=== PATIENT | female | born 1995 | race Caucasian/White ===

== ENCOUNTER 2016-08-04 13:27 | Emergency (ER) | payer OTHER ==
--- NOTE | 2016-08-04 13:39 | PDOC ---
History of Present Illness - General Chief Complaint: Psychiatric Stated Complaint: HYPERVENTILLATING/PANIC ATTACK Time Seen by Provider: 08/04/16 13:33 History Source: Patient Exam Limitations: No Limitations - History of Present Illness Initial Comments: 08/04/16 13:39 This is a 21-year-old female with a reported history of asthma (no prior intubations) disease who presents emergency department due to hyperventilation. Patient states she was at work and noted a gradual onset of anxiety, and difficulty breathing. Subsequent to that she began to panic She can not describe a specific trigger but states she intermittently has these symptoms Typically they are not as severe as today and pass on their own Pt reports spasms of her upper extremities She is anxious and states that she is typically "independent" and does not like that there are so many people attending to her Pt denies recent use of any new medications Symptoms began while in her office, no exposure to carbon monoxide or other irritants Pt denies trauma to the chest wall Pt denies Illicit drug use Pt has not had prior testing for conditions causing hyperventilation 08/04/16 13:42 PMH: asthma PSH: denies Meds: denies ALL: NKDA Social: (+) tobacco use daily, denies drugs or alcohol GENERAL/CONSTITUTIONAL: No: fever, chills, weakness, loss of appetite. HEAD, EYES, EARS, NOSE AND THROAT: No: change in vision, ear pain, discharge, sore throat, throat swelling. CARDIOVASCULAR: Yes: right sided chest pain No: chest pain, lightheadedness, palpitations, syncope RESPIRATORY: Yes: hyperventilating No: cough, shortness of breath, wheezing, hemoptysis, stridor. GASTROINTESTINAL: No: nausea, vomiting, diarrhea, abdominal cramping, rectal bleeding, constipation. GENITOURINARY: No: dysuria, hematuria, frequency, urgency, flank pain. MUSCULOSKELETAL: No: back pain, neck pain, joint pain, muscle swelling or pain SKIN AND BREASTS: No: lesions, pallor, rash or easy bruising. NEUROLOGIC: No: headache, vertigo, paresthesias, weakness ENDOCRINE: No: unexplained weight gain or loss HEMATOLOGIC/LYMPHATIC: No: anemia, easy bleeding, swelling nodes. GENERAL: The patient is hyperventilating, has carpal spasms HEAD: Normal with no signs of trauma. EYES: PERRLA, EOMI, sclera anicteric, conjunctiva clear. ENT: Ears normal, nares patent, oropharynx clear without exudates. Moist mucous membranes. NECK: Normal range of motion, supple without lymphadenopathy, JVD, or masses. LUNGS: Breath sounds equal, clear to auscultation bilaterally. HEART: pt tachycardiac, no murmur appreciated ABDOMEN: Soft, nontender, normoactive bowel sounds. No guarding, no rebound. No masses palpable. EXTREMITIES: Normal range of motion, no edema. No clubbing or cyanosis. No erythema, or tenderness. NEUROLOGICAL: Cranial nerves II through XII grossly intact. Normal speech. No focal neurological deficits. MUSCULOSKELETAL: Back non-tender to palpation, no CVA tenderness SKIN: Warm, Dry, normal turgor, no rashes or lesions noted. Past History - Past Medical History Allergies/Adverse Reactions: Allergies Allergy/AdvReac Type Severity Reaction Status Date / Time No Known Allergies Allergy Verified 08/04/16 13:39 Home Medications: Ambulatory Orders Albuterol Sulfate Inhaler - [Ventolin Hfa Inhaler -] 2 inh PO Q4H PRN 05/26/15 Asthma: Yes - Immunization History Immunization Up to Date: Yes - Psycho/Social/Smoking Cessation Hx Anxiety: No Suicidal Ideation: No Smoking History: Current every day smoker Have you smoked in the past 12 months: No Number of Cigarettes Smoked Daily: 15 'Breaking Loose' booklet given: 05/26/15 Hx Alcohol Use: No Drug/Substance Use Hx: No Substance Use Type: None ED Treatment Course - LABORATORY CBC & Chemistry Diagram: 08/04/16 01:56 08/04/16 01:56 Medical Decision Making - Medical Decision Making 08/04/16 13:[address] IV Will draw basic labs Will give Ativan Will monitor on Tele Will re assess Will also do xray (r/o Pneumo) 08/04/16 15:36 Laboratory Tests 08/04/16 08/04/16 08/04/16 01:56 01:56 01:56 WBC 12.0 H Hgb 14.4 Hct 43.1 Plt Count 450 H D Neutrophils % 38.8 L D Lymphocytes % 48.7 H D Sodium 139 Potassium 3.8 Chloride 101 Carbon Dioxide 20 L Anion Gap 18 H BUN 11 D Creatinine 0.9 Serum , Qual Negative PT GREATLY improved no longer hyperventilating Pt will be discharged to home Follow up with PMD 08/04/16 15:37 CXR: nml *DC/Admit/Observation/Transfer Diagnosis at time of Disposition: Hyperventilating - Discharge Dispostion Disposition: HOME Condition at time of disposition: Stable Admit: No - Patient Instructions Printed Discharge Instructions: DI for Hyperventilation Additional Instructions: Susan Thank you for coming in to the ER today Please follow up with your PMD within 2 days Please review with your doctor what happened today You may benefit from medications for anxiety you MUST return to the ER for any other concerns or complaint - Post Discharge Activity Work/School Note: Back to Work
[2016-08-04 13:48] VITALS: TEMP 97.9; BMI 19.5
[2016-08-04] MEDS ORDERED: LORAZEPAM CARPU-JECT 2 MG/ML DISP.SYRIN ONE (13:49)
[2016-08-04] MEDS ORDERED: LORAZEPAM CARPU-JECT 2 MG/ML DISP.SYRIN IVPUSH ONE (13:52)
[2016-08-04 14:06] LABS: BASOPHIL 4.6 % (0-2.0); MCH 30.8 pg (25.7-33.7); MCHC 33.4 g/dl (32.0-36.0); MEAN PLT VOLUME 8.4 fl (7.5-11.1); NEUTROPHILS 38.8 % (42.8-82.8); PLATELET COUNT 450 K/MM3 (134-434); RDW 12.3 % (11.6-15.6)
[2016-08-04 14:22] LABS: ALBUMIN 5.1 g/dl (3.5-5.0); ALK PHOS 61 U/L (32-92); ANION GAP 18 (8-16); BILIRUBIN,TOTAL 0.5 mg/dl (0.2-1.0); CALCIUM 10.1 mg/dl (8.4-10.2); CO2 20 mmol/L (22-28); CREATININE 0.9 mg/dl (0.6-1.3); GLUCOSE,RANDOM 121 mg/dl (74-106); SGOT/AST 33 U/L (10-42); SGPT/ALT 16 U/L (10-40)
[2016-08-04 15:54] VITALS: BP 125/77; PULSE 82
== END 2016-08-04 16:12 | disposition home or self-care (01) ==
LOC: FER 13:27
PROC: 3E033NZ Introduction of Analgesics, Hypnotics, Sedatives into Peripheral Vein, Percutaneous Approach (ICD-10-PCS; principal; 2016-08-04)
DX: R06.4 Hyperventilation (principal); F17.210 Nicotine dependence, cigarettes, uncomplicated; J45.909 Unspecified asthma, uncomplicated
CPT/HCPCS: 36415; 71010-TC; 80053; 84703; 85025; 96374; 99283-25

== ENCOUNTER 2017-04-28 12:15 | Emergency (ER) | payer SELFPAY ==
--- NOTE | 2017-04-28 12:28 | PDOC ---
History of Present Illness - General History Source: Patient <Ivelisse Day - Last Filed: 04/28/17 16:11> - General History Source: Patient, Significant Other (boyfriend) Exam Limitations: No Limitations - History of Present Illness Initial Comments: 04/28/17 14:49 The patient is a 21 year old female, with significant past medical history of asthma, who presents to the emergency department with 4 days of cold symptoms. Patient states she has been experiencing nasal congestion, cough, and pressure in her ear for 4 days. Patient states that it hurts to cough. She also reports chills, diaphoresis, SOB, and subjective fever. She denies recent headache or dizziness. She denies recent nausea, vomit, diarrhea or constipation. She denies recent dysuria, frequency, urgency or hematuria. She denies recent chest pain. Allergies: NKA Past surgical history: None reported. Social history: Current every day smoker 10-15 cigarettes/day. Primary Care Physician: Cuca lassiter [place] Timing/Duration: unsure Severity: moderate Associated Symptoms: reports: cough, shortness of breath <Mis Sandoval - Last Filed: 04/28/17 16:15> - General Chief Complaint: Cold Symptoms Stated Complaint: cough Time Seen by Provider: 04/28/17 12:23 Past History - Past Medical History Asthma: Yes - Immunization History Immunization Up to Date: Yes - Suicide/Smoking/Psychosocial Hx Smoking History: Current every day smoker Have you smoked in the past 12 months: No Number of Cigarettes Smoked Daily: 15 'Breaking Loose' booklet given: 05/26/15 Hx Alcohol Use: No Drug/Substance Use Hx: No Substance Use Type: None <MplinhIvelisse wilson Aniya - Last Filed: 04/28/17 16:11> - Travel Traveled outside of the country in the last 30 days: No Close contact w/someone who was outside of country & ill: No <Mis Sandoval - Last Filed: 04/28/17 16:15> - Past Medical History Allergies/Adverse Reactions: Allergies Allergy/AdvReac Type Severity Reaction Status Date / Time No Known Allergies Allergy Verified 04/28/17 12:16 Home Medications: Ambulatory Orders Albuterol Sulfate Inhaler - [Ventolin Hfa Inhaler -] 2 inh PO Q4H PRN 05/26/15 Prednisone [Deltasone -] 10 mg PO ASDIR #14 tab 04/28/17 Review of Systems - Review of Systems Able to Perform ROS?: Yes Is the patient limited Albanian proficient: Yes Constitutional: Yes: Chills, Diaphoresis HEENTM: Yes: Ear Pain, Nose Congestion Respiratory: Yes: See HPI, Cough, Shortness of Breath <Mis Sandoval - Last Filed: 04/28/17 16:15> *Physical Exam - Vital Signs Last Vital Signs Temp Pulse Resp BP Pulse Ox 98.2 F 88 20 109/69 100 04/28/17 12:15 04/28/17 12:15 04/28/17 12:15 04/28/17 12:15 04/28/17 12:15 - Physical Exam General Appearance: Yes: Nourished, Mild Distress HEENT: positive: ZENA Neck: positive: Supple Respiratory/Chest: positive: Respiratory Distress, Labored Respiration, Wheezing Cardiovascular: positive: Regular Rhythm, Regular Rate, Tachycardia <Mis Sandoval - Last Filed: 04/28/17 16:15> ED Treatment Course - ADDITIONAL ORDERS Additional order review: Laboratory Results 04/28/17 12:27 Urine HCG, Qual Negative - RADIOLOGY Radiograph Interpretation: 04/28/17 15:36 Chest X-Ray Impression: normal chest Reported by: Rahul Stone MD - Medications Given in the ED: ED Medications Discontinued Medications Generic Name Dose Route Start Last Admin Trade Name Freq PRN Reason Stop Dose Admin Albuterol/Ipratropium 1 amp 04/28/17 13:15 04/28/17 13:49 Duoneb - NEB 04/28/17 14:01 1 amp Q15M DARELL Administration Prednisone 60 mg 04/28/17 13:06 04/28/17 14:14 Deltasone - PO 04/28/17 13:07 Not Given ONCE ONE <Mis Sandoval - Last Filed: 04/28/17 16:15> Medical Decision Making - Medical Decision Making 04/28/17 14:26 Patient seen immediately from arrival. Given inhalation treatment twice, with minimal relief. Given normal saline. Discuss about smoking cessation. Chest x- ray read by me, found to be within normal limits. <Mis Sandoval - Last Filed: 04/28/17 16:15> *DC/Admit/Observation/Transfer - Discharge Dispostion Admit: No <Ivelisse Day - Last Filed: 04/28/17 16:11> <Mis Sandoval - Last Filed: 04/28/17 16:15> Diagnosis at time of Disposition: Hyperventilating, Asthma attack - Discharge Dispostion Disposition: HOME Condition at time of disposition: Improved - Prescriptions Prescriptions: Prednisone [Deltasone -] 10 mg PO ASDIR #14 tab - Patient Instructions Printed Discharge Instructions: DI for Asthma -- Adult Additional Instructions: Quit smoking. - Post Discharge Activity Forms/Work/School Notes: Back to Work
[2017-04-28 12:44] VITALS: BP 109/69; PULSE 88; TEMP 98.2; BMI 20.1
[2017-04-28] MEDS ORDERED: ALBUTEROL SO4 2.5/IPRATROPIUM 0.5 INH SOL 3 ML VIAL.NEB. NEB ONE ×2 (12:57→13:29)
[2017-04-28] MEDS: ALBUTEROL SO4 2.5/IPRATROPIUM 0.5 INH SOL 3 ML VIAL.NEB. NEB SCH ×2 (13:11→13:49)
--- NOTE | 2017-04-28 13:13 | PDOC ---
History of Present Illness - General Chief Complaint: Cold Symptoms Stated Complaint: cough Time Seen by Provider: 04/28/17 12:23 - History of Present Illness Initial Comments: 04/28/17 13:08 21 yo F with h/o asthma who presents with SOB. Patient reports onset of cough and URI type symptoms beginning 4 days ago. Now endorses fevers/chills, SOB, [place] , and chest/pleuritic back pain beginning yesterday morning. Pain worse with deep inhalation and coughing. Denies N/V, weakness, abdominal, or urinary complaints. Symtposm have been refractory to albuterol medical management. States that she was advised to come to ED by her PCP. Past History - Past Medical History Allergies/Adverse Reactions: Allergies Allergy/AdvReac Type Severity Reaction Status Date / Time No Known Allergies Allergy Verified 04/28/17 12:16 Home Medications: Ambulatory Orders Albuterol Sulfate Inhaler - [Ventolin Hfa Inhaler -] 2 inh PO Q4H PRN 05/26/15 Asthma: Yes COPD: No - Immunization History Immunization Up to Date: Yes - Suicide/Smoking/Psychosocial Hx Smoking History: Current every day smoker Have you smoked in the past 12 months: No Number of Cigarettes Smoked Daily: 15 Information on smoking cessation initiated: Yes 'Breaking Loose' booklet given: 05/26/15 Hx Alcohol Use: No Drug/Substance Use Hx: No Substance Use Type: None Review of Systems - Review of Systems Comments:: 04/28/17 13:13 GENERAL/CONSTITUTIONAL: No fever or chills. No weakness. HEAD, EYES, EARS, NOSE AND THROAT: No change in vision. No ear pain or discharge. No sore throat.- CARDIOVASCULAR: No chest pain or shortness of breath RESPIRATORY: No cough, wheezing, or hemoptysis. GASTROINTESTINAL: No nausea, vomiting, diarrhea or constipation. GENITOURINARY: No dysuria, frequency, or change in urination. MUSCULOSKELETAL: No joint or muscle swelling or pain. No neck or back pain. SKIN: No rash NEUROLOGIC: No headache, vertigo, loss of consciousness, or change in strength/ sensation. ENDOCRINE: No increased thirst. No abnormal weight change HEMATOLOGIC/LYMPHATIC: No anemia, easy bleeding, or history of blood clots. ALLERGIC/IMMUNOLOGIC: No hives or skin allergy. *Physical Exam - Vital Signs Last Vital Signs Temp Pulse Resp BP Pulse Ox 98.2 F 88 20 109/69 100 04/28/17 12:15 04/28/17 12:15 04/28/17 12:15 04/28/17 12:15 04/28/17 12:15 - Physical Exam Comments: 04/28/17 13:13 GENERAL: Awake, alert, and fully oriented, in no acute distress HEAD: No signs of trauma, normocephalic, atraumatic EYES: PERRLA, EOMI, sclera anicteric, conjunctiva clear ENT: Auricles normal inspection, hearing grossly normal, nares patent, oropharynx clear without exudates. Moist mucosa NECK: Normal ROM, supple, no lymphadenopathy, JVD, or masses LUNGS: No distress, speaks full sentences, clear to auscultation bilaterally HEART: Regular rate and rhythm, normal S1 and S2, no murmurs, rubs or gallops, peripheral pulses normal and equal bilaterally. ABDOMEN: Soft, nontender, normoactive bowel sounds. No guarding, no rebound. No masses EXTREMITIES : Normal inspection, Normal range of motion, no edema. No clubbing or cyanosis. NEUROLOGICAL: Cranial nerves II through XII grossly intact. Normal speech, normal gait, no focal sensorimotor deficits SKIN: Warm, Dry, normal turgor, no rashes or lesions noted. ED Treatment Course - ADDITIONAL ORDERS Additional order review: Laboratory Results 04/28/17 12:27 Urine HCG, Qual Negative - RADIOLOGY Radiology Studies Ordered: Category Date Time Status CXRPORT [CHEST X-RAY PORTABLE*] [RAD] Stat Radiology 04/28/17 13:05 Ordered
[2017-04-28] MEDS: predniSONE 20 MG TABLET (UD) PO ONE ×2 (14:12→14:14)
[2017-04-28] MEDS ORDERED: predniSONE 20 MG TABLET (UD) ONE (14:12)
[2017-04-28] MEDS ORDERED: methylPREDNISolone NA SUCC 125 MG/2 ML VIAL IVPB ONE (14:14)
[2017-04-28] MEDS ORDERED: KETOROLAC TROMETHAMINE 30 MG/1 ML VIAL IVPUSH ONE (14:20)
[2017-04-28] MEDS ORDERED: SODIUM CHLORIDE 1,000 ML IV STA (14:24)
[2017-04-28] MEDS ORDERED: KETOROLAC TROMETHAMINE 30 MG/1 ML VIAL ONE (14:25)
[2017-04-28] MEDS ORDERED: methylPREDNISolone NA SUCC 125 MG/2 ML VIAL ONE (14:25)
[2017-04-28] MEDS ORDERED: ALBUTEROL SO4 18 GM HFA INHALER IH PRN (14:27)
== END 2017-04-28 16:30 | disposition home or self-care (01) ==
LOC: FER 12:15
PROC: 3E0333Z Introduction of Anti-inflammatory into Peripheral Vein, Percutaneous Approach (ICD-10-PCS; principal; 2017-04-28)
PROC: 3E033GC Introduction of Other Therapeutic Substance into Peripheral Vein, Percutaneous Approach (ICD-10-PCS; 2017-04-28)
PROC: 3E0337Z Introduction of Electrolytic and Water Balance Substance into Peripheral Vein, Percutaneous Approach (ICD-10-PCS; 2017-04-28)
PROC: 3E0F7GC Introduction of Other Therapeutic Substance into Respiratory Tract, Via Natural or Artificial Opening (ICD-10-PCS; 2017-04-28)
DX: J45.901 Unspecified asthma with (acute) exacerbation (principal); R06.4 Hyperventilation; F17.210 Nicotine dependence, cigarettes, uncomplicated
CPT/HCPCS: 71045-TC; 84703; 99282-25

== ENCOUNTER 2019-03-18 10:08 | Inpatient (IN) | payer OTHER ==
--- NOTE | 2019-03-18 10:46 | HP ---
Past Medical History - Admission History of Present Illness: 23 yo @ 38 2/7 wks by first trimester ultrasound, EDC 03/30/2019 complicated by: 1. Inconsistent care No visit between 13-20 wks No glucose test 2. Prior SAB x 2 Patient reports leakage of fluid at 0840, contractions began at 0900. She reports movement, denies vaginal bleeding. Limitations to Obtaining History: No Limitations - Past Medical History Cardiovascular: No: HTN Pulmonary: Yes: Asthma ...: 3 ...Spon : 1 ...Induced : 1 Heme/Onc: No: Anemia - Past Surgical History Hx Myomectomy: No Hx Transabdominal Cerclage: No Additional Surgical History: Left middle finger surgery - Smoking History Smoking history: Current every day smoker Have you smoked in the past 12 months: No Aproximately how many cigarettes per day: 15 - Alcohol/Substance Use Hx Alcohol Use: No - Social History History of Recent Travel: No Home Medications - Allergies Allergies/Adverse Reactions: Allergies Allergy/AdvReac Type Severity Reaction Status Date / Time No Known Allergies Allergy Verified 04/28/17 12:16 - Home Medications Home Medications: Ambulatory Orders Albuterol Sulfate Inhaler - [Ventolin Hfa Inhaler -] 2 inh PO Q4H PRN 05/26/15 predniSONE [Deltasone -] 10 mg PO ASDIR #14 tab 04/28/17 Family Medical History Family History: Denies Review of Systems - Review of Systems Constitutional: reports: No Symptoms Cardiovascular: reports: No Symptoms Respiratory: reports: No Symptoms Gastrointestinal: reports: No Symptoms Neurological: reports: No Symptoms Endocrine: reports: No Symptoms Physical Exam - Maternity Constitutional: Yes: Well Nourished, No Distress, Calm Lungs: Clear to auscultation - Abdominal Exam/OB Number of Fetuses: Single Presentation: Vertex Contractions: Yes Regularity: Regular Monitor Mode: External Heart Rate (range): 130 Category: I Accelerations: Non-Uniform Decelerations: None - Vaginal Exam/OB Dilatation (cm): 2 Effacement (%): 90 Amniotic Membrane Status: Ruptured Nitrazine Test: Positive Amniotic Fluid: Yes: Clear Station: -3 - Physical Exam Psychiatric: Yes: Alert, Oriented - Labs Lab Results: PNL; A positive, antibody negative, RPR NR; HIV neg; Hg Scarlet AA; HBs Ag neg; HCV neg; GBS neg; *GCT not done; Sequential 1&2 WNL Hemorrhage Risk Assessment - Risk Factors Medium Risk Factors: Yes: None High Risk Factors: Yes: None Risk Score: 1 Risk Level: Medium Risk Assessment/Plan 23 yo @ 38 2/7 wks SROM, active labor 1. Admit to L&D 2. Consents reviewed and signed 3. Routine labs collected and sent 4. GBS negative 5. Category I FHT 6. Will offer pain medication upon patient request 7. Will proceed with expectant management
[2019-03-18 11:38] VITALS: BMI 26.0
[2019-03-18 11:55] LABS: BASO % 0.9 % (0-2.0); EOS % 0.5 % (0-4.5); HEMATOCRIT 34.2 % (32.4-45.2); HEMOGLOBIN 11.7 GM/dL (10.7-15.3); LYMPH % 21.5 % (8-40); MCH 30.2 pg (25.7-33.7); MCHC 34.2 g/dl (32.0-36.0); MEAN CELL VOLUME 88.5 fl (80-96); MEAN PLT VOLUME 7.9 fl (7.5-11.1); MONO % 5.3 % (3.8-10.2); NEUT % 71.8 % (42.8-82.8); PLATELET COUNT 390 K/MM3 (134-434); RBC 3.86 M/mm3 (3.60-5.2); RDW 13.5 % (11.6-15.6); WHITE BLOOD COUNT 10.6 K/mm3 (4.0-10.0)
[2019-03-18 12:12] LABS: INR 0.86 (0.83-1.09); PROTHROMBIN TIME (PATIENT) 10.1 SEC (9.7-13.0)
[2019-03-18 12:14] LABS: ACTIVATED PTT 28.1 SECONDS (25.2-36.5)
[2019-03-18 12:23] LABS: BLOOD UREA NITROGEN 6.4 mg/dL (7-18); CALCIUM 9.2 mg/dL (8.5-10.1); CREATININE 0.8 mg/dL (0.55-1.3); POTASSIUM 3.5 mmol/L (3.5-5.1)
[2019-03-18] MEDS: ELECTROLYTE-148 SOLN 1,000 ML IV SCH ×3 (12:45→18:40)
[2019-03-18] MEDS ORDERED: FENTANYL/BUPIVACAINE/NS/PF - PCEA - 50 ML DISP.SYRIN EP ONE ×2 (13:11→18:56)
[2019-03-18] MEDS ORDERED: NALOXONE HCL 0.4 MG/ML VIAL IVPUSH PRN (13:14)
[2019-03-18] MEDS ORDERED: FENTANYL/BUPIVACAINE/NS/PF - PCEA - 50 ML DISP.SYRIN EP SCH (13:15)
[2019-03-18] MEDS ORDERED: LIDO 2%/EPI 1:200000 PRESRVFRE (20 ML SDVIAL) ONE (13:16)
[2019-03-18 14:25] LABS: COCAINE, UR NEGATIVE ng/ml (CUTOFF=300); METHADONE, UR NEGATIVE ng/ml (CUTOFF=300); OPIATES, URI NEGATIVE ng/ml (CUTOFF=300); PHENCYCLIDINE,URINE NEGATIVE ng/ml (CUTOFF=25); URINE AMPHETAMINES NEGATIVE ng/ml (CUTOFF=500); URINE BARBITURATES NEGATIVE ng/ml (CUTOFF=200); URINE BENZODIAZEPINES NEGATIVE ng/ml (CUTOFF=200)
--- NOTE | 2019-03-18 16:36 | PN ---
Progress Note (short form) - Note Progress Note: LATE ENTRY NOTE Called to patient bedside for deceleration at 14:47 for approximately 4 minutes to 60s/70s Loss of contact noted Exam revealed 3 cm dilated cervix, forebag noted, AROM performed FSE attempted, no contact noted, HR picked up by external monitor Patient repositioned, O2 via facemask given Resolution of FH to 140 with mod variability Will continue to monitor
--- NOTE | 2019-03-18 17:17 | PN ---
Ante-Partal Exam - Subjective Subjective: Patient reports minimial pain with contractions Vital Signs: Vital Signs Temperature 98.0 F 03/18/19 16:00 Pulse Rate 65 03/18/19 16:45 Respiratory Rate 18 03/18/19 16:45 Blood Pressure 112/75 03/18/19 16:45 O2 Sat by Pulse Oximetry (%) 100 03/18/19 16:45 Bleeding: No Headache: No Visual changes: No Right upper quadrant pain: No - Contractions Contractions: Yes Regularity: Regular - Exam during Labor Heart Rate: 130 Variability: Moderate Category: I Monitor Accelerations: Present Monitor Decelerations: None Exam: Vaginal Dilatation (cm): 3 Effacement (%): 80 Amniotic Membrane Status: Ruptured Station: -3 - Intrapartum Hemorrhage Risk Medium Risk Factors: None High Risk Factors: None Risk Score: 0 Risk Level: Low Risk - Assessment/Plan Assessment/Plan: 23 yo active labor 1. Inadequate cervical change, will start pitocin 2. GBS neg 3. Good pain control with epidural 4. Category I FHT 5. Will proceed with expectant management
[2019-03-18] MEDS ORDERED: OXYTOCIN 30 UNITS in 0.9% NS 30 UNIT/500 ML INFUS.BAG IVPB SCH (17:30)
[2019-03-18] MEDS ORDERED: OXYTOCIN 30 UNITS in 0.9% NS 30 UNIT/500 ML INFUS.BAG IVPB ONE (17:35)
--- NOTE | 2019-03-18 19:18 | PN ---
Ante-Partal Exam - Subjective Subjective: Patient reports increased pressure Vital Signs: Vital Signs Temperature 97.9 F 03/18/19 18:59 Pulse Rate 70 03/18/19 18:45 Respiratory Rate 18 03/18/19 18:45 Blood Pressure 110/56 L 03/18/19 18:45 O2 Sat by Pulse Oximetry (%) 100 03/18/19 18:45 Bleeding: No Headache: No Visual changes: No Right upper quadrant pain: No - Contractions Contractions: Yes Regularity: Regular Monitor Mode: External - Exam during Labor Heart Rate: 130 Variability: Moderate Category: I Monitor Decelerations: Variable Exam: Vaginal Dilatation (cm): 3 Effacement (%): 80 Station: -2 - Intrapartum Hemorrhage Risk Medium Risk Factors: None High Risk Factors: None Risk Score: 0 Risk Level: Low Risk - Assessment/Plan Assessment/Plan: 23 yo active labor 1. No cervical change, mild descent in head Will continue pitocin 2. GBS negative 3. Adequate pain control with epidural 4. Will continue expectant management
--- NOTE | 2019-03-18 20:04 | PN ---
Progress Note (short form) - Note Progress Note: Called to patient bedside for deceleration to 60s-70s for 4 minutes Patient placed in Knee-chest position, O2 via facemask SVE 6 cm / 100 /-1 Recovery of FH to baseline 140s mod chirag Patient placed in R lateral position Will continue to monitor
[2019-03-18] MEDS ORDERED: LIDOCAINE HCL 1% PRESERVATIVE FREE - 30ML VIAL ONE (21:04)
[2019-03-18] MEDS ORDERED: OXYTOCIN 20 UNITS in 0.9% NS 20 UNIT/1,000 ML INFUS.BAG IV ONE (21:05)
[2019-03-18] MEDS ORDERED: BENZOCAINE 20% 57 GM BOTTLE TP PRN (22:37)
[2019-03-18] MEDS ORDERED: BENZOCAINE 28 GM HEMORRHOIDAL OINTMENT TP PRN (22:37)
[2019-03-18] MEDS ORDERED: ACETAMINOPHEN 325 MG TABLET (FP) PO PRN (22:37)
[2019-03-18] MEDS ORDERED: IBUPROFEN 600 MG TABLET (FP) PO PRN (22:37)
[2019-03-18] MEDS ORDERED: METHYLERGONOVINE MALEATE 0.2 MG/1 ML AMP IM PRN (22:37)
[2019-03-18] MEDS ORDERED: BISACODYL 10 MG SUPP.RECT RC PRN (22:37)
[2019-03-18] MEDS ORDERED: WITCH HAZEL 50% (TUCKS) 40 PAD/JAR PAD TP PRN (22:37)
--- NOTE | 2019-03-18 22:39 | PN ---
Delivery - Delivery Vaginal Delivery: No Problems Type of Anesthesia: Epidural Episiotomy/Laceration: 1st degree (vaginal, left labial) EBL (cc): 300 Delivery, Single - Stages of Labor Date 1st Stage Initiatied: 03/18/19 Time 1st Stage Initiated: 09:00 Date 2nd Stage Initiated: 03/18/19 Time 2nd Stage Initiated: 21:45 Date of Delivery: 03/18/19 Time of Delivery: 22:17 Date Placenta Delivered: 03/18/19 Time Placenta Delivered: 22:27 Placenta: Yes: Spontaneous - Condition of Infant Infant Gender: Male Position: Left, OA Total Hours ROM (Hrs/Mins): 13 hours 47 minutes - 1 Minute Total Score: 9 5 Minutes Total Score: 9 - [place] Feeding Plan Initial Plan: Exclusive throughout hospitalization Remarks - Remarks Remarks: Patient progressed to fully dilated and at 2217 via delivered a viable male in BRITANY position, APGARs 9,9. Weight and length unknown at this time. Head delivered spontaneously followed by shoulders and body without difficulty. Infant with spontaneous cry. Nose and mouth was bulb suctioned. Cord was clamped and cut. Baby handed to waiting nursery staff Perineum and vagina examined, a first degree laceration was noted and repaired in the usual fashion. Placenta was delivered spontaneously and intact. 20 units of pitocin in 1 L IVF was given. All counts correct x 2. Mother and stable in LDR. EBL 300cc.
[2019-03-18] MEDS ORDERED: OXYTOCIN 20 UNITS in 0.9% NS 20 UNIT/1,000 ML INFUS.BAG IV SCH (22:45)
[2019-03-19] MEDS ORDERED: ACETAMINOPHEN 325 MG TABLET (FP) ONE (00:32)
[2019-03-19] MEDS ORDERED: IBUPROFEN 600 MG TABLET (FP) PO ONE (00:32)
[2019-03-19 06:45] LABS: BASO % 0.3 % (0-2.0); EOS % 0.9 % (0-4.5); HEMATOCRIT 28.9 % (32.4-45.2); HEMOGLOBIN 9.9 GM/dL (10.7-15.3); LYMPH % 19.2 % (8-40); MCH 30.6 pg (25.7-33.7); MCHC 34.4 g/dl (32.0-36.0); MEAN CELL VOLUME 89.1 fl (80-96); MEAN PLT VOLUME 7.9 fl (7.5-11.1); MONO % 6.7 % (3.8-10.2); NEUT % 72.9 % (42.8-82.8); PLATELET COUNT 294 K/MM3 (134-434); RBC 3.25 M/mm3 (3.60-5.2); RDW 13.8 % (11.6-15.6); WHITE BLOOD COUNT 13.6 K/mm3 (4.0-10.0)
[2019-03-19] MEDS: PRENATAL VITAMINS W/ FOLIC ACID TABLET (FP) PO SCH (10:56)
--- NOTE | 2019-03-19 12:18 | PN ---
Post Progress Note - Subjective Subjective: Patient without acute complaints. Reports tolerating oral intake without nausea or vomiting. Ambulating without dizziness. Denies fevers or chills. Pain well controlled with oral pain medication. without difficulty. Passing flatus. Post Day: 1 Type of Delivery: Vital Signs: Vital Signs Temperature 98.2 F 03/19/19 06:00 Pulse Rate 63 03/19/19 06:00 Respiratory Rate 18 03/19/19 06:00 Blood Pressure 102/48 L 03/19/19 06:00 O2 Sat by Pulse Oximetry (%) 100 03/18/19 23:30 Breast Exam: Yes: Soft Uterus: Yes: Fundus Firm, Fundus below umbilicus Abdomen/GI: Yes: Abdomen soft, Passing flatus, Tolerating PO. No: Abdominal Distention, Tender Lochia: Yes: Rubra Lochia, amount: Small Extremities: Yes: Calves non-tender. No: Edema Perineum: Yes: Laceration Activity: Ambulating - Labs Labs: CBC WBC 13.6 K/mm3 (4.0-10.0) H 03/19/19 05:40 RBC 3.25 M/mm3 (3.60-5.2) L 03/19/19 05:40 Hgb 9.9 GM/dL (10.7-15.3) L 03/19/19 05:40 Hct 28.9 % (32.4-45.2) L D 03/19/19 05:40 MCV 89.1 fl (80-96) 03/19/19 05:40 MCH 30.6 pg (25.7-33.7) 03/19/19 05:40 MCHC 34.4 g/dl (32.0-36.0) 03/19/19 05:40 RDW 13.8 % (11.6-15.6) 03/19/19 05:40 Plt Count 294 K/MM3 (134-434) D 03/19/19 05:40 MPV 7.9 fl (7.5-11.1) 03/19/19 05:40 Absolute Neuts (auto) 9.9 K/mm3 (1.5-8.0) H 03/19/19 05:40 Neutrophils % 72.9 % (42.8-82.8) 03/19/19 05:40 Lymphocytes % 19.2 % (8-40) 03/19/19 05:40 Monocytes % 6.7 % (3.8-10.2) 03/19/19 05:40 Eosinophils % 0.9 % (0-4.5) 03/19/19 05:40 Basophils % 0.3 % (0-2.0) 03/19/19 05:40 Nucleated RBC % 0 % (0-0) 03/19/19 05:40 Assessment/Plan 23 yo PPD # 1 s/p , afebrile, vital signs stable, doing well 1. Continue routine care. 2. AM CBC with mild anemia, will start iron 3. Rh positive status, no rhogam indicated. 4. Encourage ambulation 5. Continue oral pain medication 6. Anticipate discharge home day #2
[2019-03-19] MEDS ORDERED: SENNOSIDES/DOCUSATE COMBO (SENNA PLUS) TABLET (UD) PO PRN (22:00)
[2019-03-19] MEDS: FERROUS SO4 325 MG TABLET (FP) PO SCH (23:00)
--- NOTE | 2019-03-20 08:23 | DS ---
Physical Exam-CULINARY CHEF Vital Signs: Vital Signs Temperature 98.5 F 03/19/19 22:00 Pulse Rate 70 03/19/19 22:00 Respiratory Rate 20 03/19/19 22:00 Blood Pressure 118/69 03/19/19 22:00 O2 Sat by Pulse Oximetry (%) 100 03/18/19 23:30 Constitutional: Yes: Well Nourished, No Distress, Calm Eyes: Yes: WNL, Conjunctiva Clear, EOM Intact HENT: Yes: WNL, Atraumatic, Normocephalic Neck: Yes: WNL, Supple, Trachea Midline Cardiovascular: Yes: WNL, Regular Rate and Rhythm Respiratory: Yes: WNL, Regular, CTA Bilaterally Gastrointestinal: Yes: WNL, Normal Bowel Sounds, Soft Pelvis: Yes: WNL External Genitalia: Yes: Normal Internal Exam Deferred: Yes ....Post : Yes: Uterus firm, Uterus non-tender Breast(s): Yes: WNL Musculoskeletal: Yes: WNL Extremities: Yes: WNL Edema: No Integumentary: Yes: WNL Wound/Incision: Yes: Clean/Dry, Well Approximated Neurological: Yes: WNL, Alert, Oriented ...Motor Strength: WNL Psychiatric: Yes: WNL, Alert, Oriented Labs: CBC, BMP 03/19/19 05:40 03/18/19 11:41 Delivery - Delivery Vaginal Delivery: No Problems Type of Anesthesia: Epidural Episiotomy/Laceration: 1st degree (vaginal, left labial) EBL (cc): 300 Delivery, Single - Stages of Labor Date 1st Stage Initiatied: 03/18/19 Time 1st Stage Initiated: 09:00 Date 2nd Stage Initiated: 03/18/19 Time 2nd Stage Initiated: 21:45 Date of Delivery: 03/18/19 Time of Delivery: 22:17 Time Placenta Delivered: 22:27 Placenta: Yes: Spontaneous - Condition of Infant Gender: Male Weight: 5 lb 1 oz Position: Left, OA Total Hours ROM (Hrs/Mins): 13 hours 47 minutes - 1 Minute Total Score: 9 5 Minutes Total Score: 9 - Feeding Plan Initial Plan: Exclusive throughout hospitalization Discharge Summary Problems reviewed: Yes Reason For Visit: LABOR Procedures: Principal: Normal vaginal delivery Other Procedures: Penile circumcision of Condition: Good - Instructions Diet, Activity, Other Instructions: Physical activity Resume your normal everyday activity as tolerated no heavy lifting or exercise until seen by your surgeon. You may walk unlimited radha of and climb stairs. You may resume driving the car when you feel safe and comfortable behind the wheel. No sexual activity as instructed. Wound care If you have a bandage, leave it on, and keep dry for 48-72 hours. After that time discard the outer bandage. If they are tapes on the skin under the out of bandage leave them in place. They will peel off in the next 7 to 10 days. Do Not Peel them off. You may shower the day after surgery. If there are tapes present on the skin, you may shower over them. Diet There are no dietary restrictions. Eat healthy, high-fiber foods. Drink 6 to 8 glasses of liquid each day. This will assist in keeping your bowels are regular. Pain management You may take Tylenol or acetaminophen or Ibuprofen (for example, Motrin, Advil etc.) from my pain prescription medication is ordered should be taken as prescribed for moderate to severe pain. Call MD for any of the following: Severe pain not relieved by medication Fever of 101 or higher Excessive bleeding or drainage on dressing Inability to urinate Disposition: HOME - Home Medications Comprehensive Discharge Medication List: Ambulatory Orders Albuterol Sulfate Inhaler - [Ventolin Hfa Inhaler -] 2 inh PO Q4H PRN 05/26/15 Folic Acid - 1 mg PO DAILY 03/18/19 Iron/Calcium/E/Folic Acid/Mvit [Vitafol Caplet] 1 each PO DAILY 03/18/19 Vits96/Iron Fum/Folic [ Tablet] 1 each PO DAILY 03/18/19
[2019-03-20] MEDS: FERROUS SO4 325 MG TABLET (FP) PO SCH (09:36)
[2019-03-20] MEDS: PRENATAL VITAMINS W/ FOLIC ACID TABLET (FP) PO SCH (09:37)
[2019-03-20 11:39] LABS: POC NITRAZINE POS
[2019-03-20 15:55] VITALS: BP 115/72; PULSE 63; TEMP 98.4
== END 2019-03-20 13:50 | disposition home or self-care (01) | DRG 807 ==
LOC: JDEL 10:08 → JLDR 10:15 → J3W 03-19 01:30
PROVIDERS: ADMIT Obstetrics & Gynecology; ATTEND Obstetrics & Gynecology
PROC: 0HQ9XZZ Repair Perineum Skin, External Approach (ICD-10-PCS; principal; 2019-03-18)
PROC: 10E0XZZ Delivery of Products of Conception, External Approach (ICD-10-PCS; 2019-03-18)
DX: O70.0 First degree perineal laceration during delivery (principal); Z37.0 Single live birth; Z3A.38 38 weeks gestation of pregnancy
CPT/HCPCS: 36415; 36600; 59409; 80048; 80307; 82803; 83986-QW; 85025; 85610; 85730; 86593; 86850; 86900; 86901

== ENCOUNTER 2021-11-23 22:42 | Emergency (ER) | payer OTHER ==
[2021-11-23 22:51] VITALS: BP 135/87; PULSE 88; RESP 18; TEMP 98.4; BMI 24.1
[2021-11-23 23:28] LABS: HEMATOCRIT 39.3 % (32.4-45.2); HEMOGLOBIN 13.8 G/dL (10.7-15.3); MCH 31.5 pg (25.7-33.7); MCHC 35.2 g/dl (32.0-36.0); MEAN CELL VOLUME 89.4 fl (80-96); MEAN PLT VOLUME 6.8 fl (7.5-11.1); PLATELET COUNT 374.3 10^3/uL (134-434); RDW 14.1 % (11.6-15.6); WHITE BLOOD COUNT 9.9 10^3/uL (4.0-10.8)
[2021-11-23 23:34] LABS: HCG,QUALITATIVE URINE Negative
[2021-11-23 23:35] LABS: PLATELET ESTIMATE ADEQUATE
[2021-11-23 23:50] LABS: ALBUMIN 4.5 g/dl (3.4-5.0); BILIRUBIN,TOTAL 0.5 mg/dl (0.2-1); CREATININE 0.8 mg/dl (0.55-1.3); TOT PROT 7.3 g/dl (6.4-8.2)
[2021-11-24] MEDS ORDERED: PANTOPRAZOLE 40 MG TABLET PO ONE ×2 (00:18→00:26)
== END 2021-11-24 00:41 | disposition home or self-care (01) ==
LOC: FER 22:42
DX: R20.2 Paresthesia of skin (principal); K21.00 Gastro-esophageal reflux disease with esophagitis, without bleeding
CPT/HCPCS: 36415; 80053; 81003; 84443; 84703; 85027; 99283-25

== ENCOUNTER 2022-08-01 19:00 | Inpatient (IN) | payer OTHER ==
[2022-08-01] MEDS ORDERED: DINOPROSTONE 10 MG VAGINAL SUPPOSITORY VG ONE (19:45)
[2022-08-01] MEDS: ELECTROLYTE-148 SOLN 1,000 ML IV SCH (20:00)
[2022-08-01 20:08] VITALS: BMI 27.8
[2022-08-01 20:12] LABS: BASO % 0.7 % (0-2.0); EOS % 1.3 % (0-4.5); HEMATOCRIT 34.4 % (32.4-45.2); HEMOGLOBIN 11.8 GM/dL (10.7-15.3); LYMPH % 33.1 % (8-40); MCH 29.3 pg (25.7-33.7); MCHC 34.2 g/dl (32.0-36.0); MEAN CELL VOLUME 85.6 fl (80-96); MEAN PLT VOLUME 7.7 fl (7.5-11.1); NEUT % 58.9 % (42.8-82.8); PLATELET COUNT 341 10^3/uL (134-434); RBC 4.02 M/mm3 (3.60-5.2); RDW 13.4 % (11.6-15.6); WHITE BLOOD COUNT 9.1 K/mm3 (4.0-10.0)
[2022-08-01 20:19] LABS: INR 0.9 (0.83-1.09); PROTHROMBIN TIME (PATIENT) 10.5 SEC (9.7-13.0)
[2022-08-01 20:22] LABS: ACTIVATED PTT 25.4 SECONDS (25.2-36.5)
[2022-08-01 20:46] LABS: CALCIUM 9.8 mg/dL (8.5-10.1)
[2022-08-01 20:47] LABS: BLOOD UREA NITROGEN 13.4 mg/dL (7-18)
[2022-08-01 20:50] LABS: CREATININE 0.7 mg/dL (0.55-1.3)
[2022-08-02] MEDS ORDERED: FENTANYL/BUPIVACAINE/NS/PF - PCEA - 50 ML DISP.SYRIN EP ONE ×3 (10:04→19:31)
[2022-08-02] MEDS ORDERED: NALOXONE HCL 0.4 MG/ML VIAL IVPUSH PRN (10:10)
[2022-08-02] MEDS ORDERED: FENTANYL CITRATE/PF 50 MCG/ML VIAL ONE ×2 (10:11→19:42)
[2022-08-02] MEDS ORDERED: BUPIVACAINE HCL/PF 0.25% (2.5MG/ML) 10 ML VIAL ONE (10:11)
[2022-08-02] MEDS: ELECTROLYTE-148 SOLN 1,000 ML IV SCH ×2 (10:15→14:30)
[2022-08-02] MEDS ORDERED: OXYTOCIN 30 UNITS in 0.9% NS 30 UNIT/500 ML INFUS.BAG IVPB SCH (10:30)
[2022-08-02] MEDS: FENTANYL/BUPIVACAINE/NS/PF - PCEA - 50 ML DISP.SYRIN EP SCH ×2 (10:30→15:15)
[2022-08-02] MEDS ORDERED: OXYTOCIN 30 UNITS in 0.9% NS 30 UNIT/500 ML INFUS.BAG IVPB ONE (11:18)
[2022-08-02] MEDS ORDERED: AMPICILLIN SODIUM 2 GM VIAL ONE (19:35)
[2022-08-02] MEDS ORDERED: AMPICILLIN - 2 GM in SODIUM CHLORIDE 100 ML IVPB ONE (19:40)
[2022-08-02] MEDS ORDERED: LIDOCAINE HCL 1% PRESERVATIVE FREE - 30ML VIAL ONE (19:42)
[2022-08-02] MEDS ORDERED: OXYTOCIN 20 UNITS in 0.9% NS 20 UNIT/1,000 ML INFUS.BAG IV ONE (19:53)
[2022-08-02 21:03] LABS: CORD BASE EXCESS -0.3 mmol/L (0-2); CORD PCO2 38.4 mmHg (30-78); CORD pH 7.414 (7.14-7.44)
[2022-08-02] MEDS ORDERED: BISACODYL 10 MG SUPP.RECT RC PRN (21:38)
[2022-08-02] MEDS ORDERED: BENZOCAINE 20% 57 GM BOTTLE TP PRN (21:38)
[2022-08-02] MEDS ORDERED: ACETAMINOPHEN 325 MG TABLET (FP) PO PRN (21:38)
[2022-08-02] MEDS ORDERED: oxyCODONE HCL 5 MG TABLET PO PRN (21:38)
[2022-08-02] MEDS ORDERED: BENZOCAINE 28 GM HEMORRHOIDAL OINTMENT TP PRN (21:38)
[2022-08-02] MEDS ORDERED: METHYLERGONOVINE MALEATE 0.2 MG/1 ML AMP IM PRN (21:38)
[2022-08-02] MEDS ORDERED: WITCH HAZEL 50% (TUCKS) 40 PAD/JAR PAD TP PRN (21:38)
[2022-08-02] MEDS ORDERED: OXYTOCIN 20 UNITS in 0.9% NS 20 UNIT/1,000 ML INFUS.BAG IV SCH (21:45)
[2022-08-02] MEDS: IBUPROFEN 600 MG TABLET (FP) PO PRN (23:38)
[2022-08-03 08:57] LABS: BASO % 0.4 % (0-2.0); EOS % 0.6 % (0-4.5); HEMATOCRIT 31.1 % (32.4-45.2); HEMOGLOBIN 10.8 GM/dL (10.7-15.3); LYMPH % 22.1 % (8-40); MCHC 34.7 g/dl (32.0-36.0); MEAN CELL VOLUME 86.4 fl (80-96); MEAN PLT VOLUME 8.3 fl (7.5-11.1); MONO % 5.4 % (3.8-10.2); NEUT % 71.5 % (42.8-82.8); PLATELET COUNT 259 10^3/uL (134-434); RDW 13.3 % (11.6-15.6)
[2022-08-03] MEDS: PRENATAL VITAMINS W/ FOLIC ACID TABLET (FP) PO SCH (09:44)
[2022-08-03] MEDS ORDERED: SENNOSIDES/DOCUSATE COMBO (SENNA PLUS) TABLET (UD) PO PRN (22:00)
[2022-08-04] MEDS: IBUPROFEN 600 MG TABLET (FP) PO PRN (01:43)
[2022-08-04] MEDS: PRENATAL VITAMINS W/ FOLIC ACID TABLET (FP) PO SCH (09:15)
[2022-08-04 11:01] VITALS: BP 118/76; PULSE 86; RESP 16; TEMP 97.8
== END 2022-08-04 13:30 | disposition home or self-care (01) | DRG 807 ==
LOC: JLDR 19:00 → J3W 08-02 22:35
PROVIDERS: ADMIT Obstetrics & Gynecology; ATTEND Obstetrics & Gynecology
PROC: 10E0XZZ Delivery of Products of Conception, External Approach (ICD-10-PCS; principal; 2022-08-02)
DX: O36.5930 Maternal care for other known or suspected poor fetal growth, third trimester, not applicable or unspecified (principal); Z37.0 Single live birth; Z3A.37 37 weeks gestation of pregnancy
CPT/HCPCS: 36415; 36600; 80048; 82803; 82962; 85025; 85610; 85730; 86780; 86850; 86900; 86901; 88307-TC; C9803-CS; U0003; U0005

== ENCOUNTER 2023-11-16 17:58 | Emergency (ER) | payer OTHER ==
[2023-11-16 18:06] VITALS: RESP 18; TEMP 97.9; BMI 26.4
[2023-11-16] MEDS: SODIUM CHLORIDE 1,000 ML IV STA (19:46)
[2023-11-16] MEDS ORDERED: KETOROLAC TROMETHAMINE 30 MG/1 ML VIAL ONE (19:47)
[2023-11-16] MEDS ORDERED: METOCLOPRAMIDE HCL INJECTION 10 MG/2 ML VIAL ONE (19:47)
[2023-11-16] MEDS ORDERED: AMOX TR/POT CLAV 875MG/125MG TABLETS (FP) ONE (19:47)
[2023-11-16 19:50] LABS: POTASSIUM 4.5 mmol/L (3.5-5.1)
[2023-11-16 19:52] LABS: BLOOD UREA NITROGEN 14.5 mg/dL (7-18); CALCIUM 9.9 mg/dL (8.5-10.1); MAGNESIUM 2.3 mg/dL (1.8-2.4)
[2023-11-16 19:56] LABS: CREATININE 0.9 mg/dL (0.55-1.3)
[2023-11-16 20:03] LABS: BASO % 0.6 % (0-2.0); EOS % 3.1 % (0-4.5); HEMATOCRIT 38.4 % (32.4-45.2); HEMOGLOBIN 13.1 GM/dL (10.7-15.3); LYMPH % 30.7 % (8-40); MCH 29.6 pg (25.7-33.7); MCHC 34.2 g/dl (32.0-36.0); MEAN CELL VOLUME 86.4 fl (80-96); MEAN PLT VOLUME 7.3 fl (7.5-11.1); MONO % 4.7 % (3.8-10.2); NEUT % 60.9 % (42.8-82.8); PLATELET COUNT 419 10^3/uL (134-434); RBC 4.44 M/mm3 (3.60-5.2); RDW 13.7 % (11.6-15.6); WHITE BLOOD COUNT 11.8 K/mm3 (4.0-10.0)
[2023-11-16] MEDS: KETOROLAC TROMETHAMINE 30 MG/1 ML VIAL IVPUSH ONE (20:37)
[2023-11-16] MEDS: METOCLOPRAMIDE HCL INJECTION 10 MG/2 ML VIAL IVPUSH ONE (20:37)
[2023-11-16 20:55] VITALS: BP 120/76; PULSE 67
[2023-11-16] MEDS: AMOX TR/POT CLAV 875MG/125MG TABLETS (FP) PO ONE (21:17)
== END 2023-11-16 21:17 | disposition home or self-care (01) ==
LOC: JERFT 17:58
PROC: 3E033GC Introduction of Other Therapeutic Substance into Peripheral Vein, Percutaneous Approach (ICD-10-PCS; principal; 2023-11-16)
PROC: 3E0333Z Introduction of Anti-inflammatory into Peripheral Vein, Percutaneous Approach (ICD-10-PCS; 2023-11-16)
DX: G43.909 Migraine, unspecified, not intractable, without status migrainosus (principal); J01.10 Acute frontal sinusitis, unspecified; Z20.822 Contact with and (suspected) exposure to COVID-19
CPT/HCPCS: 0241U-QW; 36415; 80048; 83735; 84703; 85025; 99284-25